=== PATIENT | female | born 1995 | race Caucasian/White ===

== ENCOUNTER 2021-11-03 06:58 | Day surgery (SDC) | payer OTHER, SELFPAY ==
[~2021-11-03] VITALS: Ht 170.2 cm; Wt 67.1 kg
[2021-11-03] MEDS ORDERED: CEFAZOLIN SOD 2 GM in D5W 50 ML IV ONE (07:00)
[2021-11-03 07:48] LABS: HCG,QUAL RESULT NEGATIVE (NEGATIVE)
[2021-11-03] MEDS ORDERED: ONDANSETRON HCL 4 MG/2 ML VIAL IVP ONE (09:05)
[2021-11-03] MEDS ORDERED: SUCCINYLCHOLINE CHLORIDE 20 MG/ML(QUELICIN) IVP ONE (09:05)
[2021-11-03] MEDS ORDERED: NS IRRIG SOLN 1000 ML IR ONE (09:05)
[2021-11-03] MEDS ORDERED: LR 1,000 ML IV.SOLN IV ONE (09:05)
[2021-11-03] MEDS ORDERED: PHENYLEPHRINE HCL 10 MG/ML VIAL (NEOSYNEPHRINE) IV ONE (09:05)
[2021-11-03] MEDS ORDERED: GLYCOPYRROLATE 0.2 MG/ML VIAL IJ ONE (09:05)
[2021-11-03] MEDS ORDERED: fentaNYL CITRATE 250 MCG/5 ML AMP IV ONE (09:05)
[2021-11-03] MEDS ORDERED: PROPOFOL 200MG/ 20ML VIAL (DIPRIVAN) IV ONE (09:05)
[2021-11-03] MEDS ORDERED: METOCLOPRAMIDE HCL 10 MG/2 ML VIAL IVP ONE ×2 (09:05→15:45)
[2021-11-03] MEDS ORDERED: SEVOFLURANE 15 MIN GAS INH ONE (09:05)
[2021-11-03] MEDS ORDERED: LIDOCAINE/EPI 1% 1:100000 20 ML VIAL INJ ONE (09:05)
[2021-11-03] MEDS ORDERED: MIDAZOLAM HCL 5 MG/5 ML VIAL IVP ONE (09:05)
[2021-11-03] MEDS ORDERED: HYDROmorphone 1 MG/ML INJ. CARTRIDGE IVP PRN (10:00)
[2021-11-03] MEDS ORDERED: LR 1,000 ML IV SCH (10:00)
[2021-11-03] MEDS ORDERED: HYDROmorphone 2 MG/ML VIAL IVP PRN (10:00)
[2021-11-03] MEDS ORDERED: KETOROLAC TROMETHAMINE 30 MG VIAL IVP PRN (10:00)
[2021-11-03] MEDS ORDERED: ONDANSETRON HCL 4 MG/2 ML VIAL IVP PRN ×2 (10:00→14:45)
[2021-11-03] MEDS ORDERED: ONDANSETRON HCL 4 MG/2 ML VIAL ONE (13:55)
[2021-11-03] MEDS ORDERED: ACETAMINOPHEN/CODEINE 300 MG-30 MG TABLET PO PRN (14:45)
[2021-11-03] MEDS ORDERED: ACETAMINOPHEN 500 MG TABLET PO PRN (14:45)
[2021-11-03] MEDS ORDERED: ONDANSETRON 4 MG ODT TAB PO PRN (14:45)
[2021-11-03] MEDS ORDERED: NALOXONE HCL 0.4 MG/ML AMP (NARCAN) IVP PRN (14:45)
[2021-11-03] MEDS ORDERED: HYDROcodone/ACETAMIN 5-325 MG TAB (NORCO/ VICODIN) PO PRN (14:45)
[2021-11-03] MEDS ORDERED: DEXAMETHASONE SOD PHOSPHATE 4 MG/ML VIAL IVP ONE (15:45)
[2021-11-03] MEDS ORDERED: METOCLOPRAMIDE HCL 10 MG/2 ML VIAL ONE (15:49)
[2021-11-03 17:10] VITALS: BP_SYST 117
== END 2021-11-03 17:05 | disposition home or self-care (01) ==
LOC: SDS 06:58 → SMU 07:00 → SDS 17:05
PROVIDERS: ATTEND Otolaryngology
DX: D11.0 Benign neoplasm of parotid gland (principal); Z20.822 Contact with and (suspected) exposure to COVID-19; Z79.899 Other long term (current) drug therapy
CPT/HCPCS: 42415; 84703; 88307; C1782; J0330; J0690; J2250; J2370; J2405; J2704; J2765; J3010; J3490; J7060; J7120; U0003; 88305